=== PATIENT | female | born 1965 | race African-American/Black ===

== ENCOUNTER → 2020-02-08 | Outpatient (CLI) | payer BC | LOC: MAMMO 12:53 | PROVIDERS: ATTEND Internal Medicine | DX: Z12.31 Encounter for screening mammogram for malignant neoplasm of breast (principal) | CPT/HCPCS: 77067 ==

== ENCOUNTER → 2020-02-29 | Outpatient (CLI) | payer BC ==
--- NOTE | 2020-02-29 15:38 | Diagnostic Imaging Report ---
#[id number] - USBRELIMRT ULTRASOUND OF THE RIGHT BREAST : 02/29/2020 Comparison is made to exams dated: 02/29/2020 mammogram and 02/08/2020 mammogram - [facility]. Color flow and real-time ultrasound were performed on the right breast. Morrow scale images of the real-time examination were reviewed. No abnormalities were seen sonographically in the right breast. IMPRESSION: NEGATIVE There is no sonographic evidence of malignancy. A 1 year screening mammogram is recommended. RAKEL monroe/penconstantine:02/29/2020 13:24:32 Assistant Teacher Primary: [facility], [facility] letter sent: Normal Exam Ultrasound BI-RADS: 1 Negative
--- NOTE | 2020-02-29 15:38 | Diagnostic Imaging Report ---
#[id number] - MGDXRT #UNILATERAL RIGHT DIGITAL DIAGNOSTIC MAMMOGRAM WITH SPOT COMPRESSION: 02/29/2020 Comparison is made to exams dated: 02/08/2020 mammogram - [facility] and 09/20/2014 mammogram - [facility]. The tissue of the right breast is heterogeneously dense. This may lower the sensitivity of mammography. There is a benign intramammary node in the right breast. No significant masses, calcifications, or other findings are seen in the breast. There has been no significant interval change. IMPRESSION: BENIGN There is no mammographic evidence of malignancy. A 1 year screening mammogram is recommended. The patient will be notified by letter of the results. 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 letter sent: Compared to Prior B9 Mammogram BI-RADS: 2 Benign
== END ==
LOC: MAMMO 11:07
PROVIDERS: ATTEND Internal Medicine
DX: N63.10 Unspecified lump in the right breast, unspecified quadrant (principal)